=== PATIENT | female | born 1940 | race Caucasian/White ===

== ENCOUNTER → 2016-10-06 | Outpatient (CLI) | payer MEDICARE, SELFPAY | LOC: MAMO 10-01 15:00 | DX: Z12.31 Encounter for screening mammogram for malignant neoplasm of breast (principal); Z80.3 Family history of malignant neoplasm of breast | CPT/HCPCS: G0202 ==

== ENCOUNTER → 2020-12-16 | Outpatient (CLI) | payer MEDICARE ==
[~2020-12-16] MED LIST: AMIODARONE HCL200 MG PO; ASPIRIN EC81 MG PO; ATORVASTATIN CA20 MG PO; CARVEDILOL3.125 MG PO; CLARITIN10 MG PO; CLOPIDOGREL75 MG PO; ENOXAPARIN60 MG/0.6 SC; FLONASE 0.05% N16 GM; GABAPENTIN400 MG PO; IMDUR ER TAB 3030 MG PO; LEVOTHYROXINE50 MCG PO; LORTAB 7.5-3251 EACH PO; NITROGLYCERIN0.4 MG SL; PEPCID40 MG PO; PRAVACHOL40 MG PO; XANAX1 MG PO; ZANAFLEX4 MG PO
== END ==
LOC: HEART 5 07:46
DX: I25.10 Atherosclerotic heart disease of native coronary artery without angina pectoris (principal); R07.9 Chest pain, unspecified; R94.39 Abnormal result of other cardiovascular function study
CPT/HCPCS: 78452; A9502; J2785

== ENCOUNTER → 2021-03-24 | Outpatient (CLI) | payer MEDICARE | LOC: MAMO 13:08 | DX: Z12.31 Encounter for screening mammogram for malignant neoplasm of breast (principal); Z90.710 Acquired absence of both cervix and uterus | CPT/HCPCS: 77063; 77067 ==

== ENCOUNTER → 2021-04-14 | Outpatient (CLI) | payer MEDICARE | LOC: KOH-I 14:03 | DX: S09.90XA Unspecified injury of head, initial encounter (principal); G31.9 Degenerative disease of nervous system, unspecified; R90.82 White matter disease, unspecified | CPT/HCPCS: 70450 ==

== ENCOUNTER → 2021-04-29 | Outpatient (CLI) | payer MEDICARE | LOC: EXRD 09:46 | DX: M81.0 Age-related osteoporosis without current pathological fracture (principal); Z78.0 Asymptomatic menopausal state | CPT/HCPCS: 77080 ==

== ENCOUNTER → 2021-11-12 | Outpatient (CLI) | payer MEDICARE, OTHER | LOC: CT 10:15 | DX: R10.9 Unspecified abdominal pain (principal); R93.2 Abnormal findings on diagnostic imaging of liver and biliary tract | CPT/HCPCS: Q9967 ==